=== PATIENT | female | born 1995 | race Caucasian/White ===

== ENCOUNTER 2017-01-06 21:23 | Inpatient (IN) | payer OTHER ==
[~2017-01-06] VITALS: Ht 162.6 cm; Wt 63.5 kg
[2017-01-06 23:34] LABS: HEMOGLOBIN 9.6 gm/dl (12.3-15.3); RED BLOOD COUNT 3.38 M/UL (4.00-5.10)
[2017-01-08 04:08] LABS: HEMOGLOBIN 9.5 gm/dl (12.3-15.3)
[2017-01-09] MEDS ORDERED: COLACE 100MG C100 MG PO (12:03)
== END 2017-01-09 11:35 | disposition home or self-care (01) | DRG 774 ==
LOC: GENOP 21:23 → OB 22:58 → GENOP 22:58 → OB 22:58
PROVIDERS: Obstetrics & Gynecology; ADMIT Obstetrics & Gynecology
PROC: 10E0XZZ Delivery of Products of Conception, External Approach (ICD-10-PCS; principal; 2017-01-07)
PROC: 0UQMXZZ Repair Vulva, External Approach (ICD-10-PCS; 2017-01-07)
PROC: 10907ZC Drainage of Amniotic Fluid, Therapeutic from Products of Conception, Via Natural or Artificial Opening (ICD-10-PCS; 2017-01-07)
PROC: 3E0234Z Introduction of Serum, Toxoid and Vaccine into Muscle, Percutaneous Approach (ICD-10-PCS; 2017-01-08)
DX: O60.14X0 Preterm labor third trimester with preterm delivery third trimester, not applicable or unspecified (principal); O72.1 Other immediate postpartum hemorrhage; O70.0 First degree perineal laceration during delivery; Z3A.37 37 weeks gestation of pregnancy; Z37.0 Single live birth; Z23 Encounter for immunization
CPT/HCPCS: 36415; 51702; 80307; 81001; 82800; 85014; 85018; 85025; 85461; 86850; 86900; 86901; 90715; J2210; J2300; J2550; J2590; J2790; J2795; J3010; J7050; J7120

== ENCOUNTER → 2017-01-06 | Outpatient (CLI) | payer OTHER ==
[~2017-01-06] MED LIST: COLACE 100MG C100 MG PO
[2017-01-06 13:52] LABS: HEMOGLOBIN 10.2 gm/dl (12.3-15.3); RED BLOOD COUNT 3.59 M/UL (4.00-5.10); WHITE BLOOD COUNT 15.4 K/UL (4.5-11.0)
[2017-01-06 14:07] LABS: BUN/CREATININE RATIO 17 (0-10)
== END ==
LOC: GENOP 12:54
PROVIDERS: Obstetrics & Gynecology
DX: Z34.80 Encounter for supervision of other normal pregnancy, unspecified trimester (principal); Z3A.00 Weeks of gestation of pregnancy not specified
CPT/HCPCS: 36415; 80048; 85025; 86762; 86780; 87340; 87390; J7050

== ENCOUNTER 2017-01-19 17:07 | Outpatient (CLI) | payer OTHER | END 2017-01-19 19:39 | disposition home or self-care (01) | LOC: GENOP 17:07 | DX: O89.4 Spinal and epidural anesthesia-induced headache during the puerperium (principal) | CPT/HCPCS: G0463; J7120 ==